=== PATIENT | female | born 1930 | race Native Hawaiian/Other Pacific Islander ===

== ENCOUNTER 2017-03-28 09:54 | Outpatient (CLI) | payer OTHER ==
[~2017-03-28 09:54] MED LIST: ALPR0.2566 PO; CARV12.5 PO; CELEBREX PO; CLOP75TA2 PO; DIGOX125 MCG PO; EVISTA60 MG PO; FURO20TA67 PO; LIPITOR10 MG PO; SPIR25TA66 PO; VALS80CA2 PO; VIT E COMPLX400 UNIT PO
[2017-03-28 11:40] LABS: PLATELET COUNT 267 K/uL (152-353)
[2017-03-28 12:20] LABS: POTASSIUM 4.3 mmol/L (3.6-5.2)
== END 2017-03-28 13:00 | disposition home or self-care (01) ==
LOC: LABW 09:54
PROVIDERS: Nurse Practitioner
DX: I25.10 Atherosclerotic heart disease of native coronary artery without angina pectoris (principal); I10 Essential (primary) hypertension; I51.89 Other ill-defined heart diseases
CPT/HCPCS: 36415; 80053; 80061; 84443; 85027

== ENCOUNTER 2017-07-21 10:53 | Emergency (ER) | payer OTHER ==
[~2017-07-21] VITALS: Ht 157.5 cm; Wt 68.0 kg
[2017-07-21 11:48] LABS: PLATELET COUNT 230 K/uL (152-353)
[2017-07-21 13:14] VITALS: BP 121/64; TEMP 97.9
== END 2017-07-21 13:15 | disposition home or self-care (01) ==
LOC: ED 10:53
DX: J11.1 Influenza due to unidentified influenza virus with other respiratory manifestations (principal); R05 Cough; R50.9 Fever, unspecified
CPT/HCPCS: 85027; 87081; 87804; 87880; 99283

== ENCOUNTER 2017-10-24 12:15 | Outpatient (CLI) | payer OTHER | END 2017-10-24 22:29 | disposition home or self-care (01) | LOC: US 12:15 | DX: M54.2 Cervicalgia (principal); M25.512 Pain in left shoulder; R42 Dizziness and giddiness; I10 Essential (primary) hypertension ==

== ENCOUNTER 2017-10-30 13:08 | Outpatient (CLI) | payer OTHER ==
[2017-10-30 13:54] LABS: PLATELET COUNT 281 K/uL (152-353)
[2017-10-30 14:19] LABS: POTASSIUM 4.6 mmol/L (3.6-5.2)
== END 2017-10-30 21:30 | disposition home or self-care (01) ==
LOC: LAB 13:08
PROVIDERS: Nurse Practitioner Family
DX: I10 Essential (primary) hypertension (principal); F41.8 Other specified anxiety disorders; I25.10 Atherosclerotic heart disease of native coronary artery without angina pectoris; Z79.899 Other long term (current) drug therapy; Z51.81 Encounter for therapeutic drug level monitoring
CPT/HCPCS: 80053; 80061; 83036; 84436; 84443; 85027

== ENCOUNTER 2017-11-05 09:32 | Outpatient (CLI) | payer OTHER | END 2017-11-05 19:57 | disposition home or self-care (01) | LOC: US 09:32 | DX: E04.1 Nontoxic single thyroid nodule (principal) ==

== ENCOUNTER 2018-07-29 11:16 | Outpatient (CLI) | payer OTHER | END 2018-07-29 20:28 | disposition home or self-care (01) | LOC: RAD 11:16 | DX: R07.89 Other chest pain (principal) ==

== ENCOUNTER 2019-08-13 10:46 | Outpatient (CLI) | payer OTHER | END 2019-08-13 19:13 | disposition home or self-care (01) | LOC: RAD 10:46 | DX: M25.562 Pain in left knee (principal); R60.0 Localized edema ==

== ENCOUNTER 2019-09-03 13:22 | Outpatient (CLI) | payer OTHER ==
[2019-09-03 14:09] LABS: PLATELET COUNT 292 K/uL (152-353)
[2019-09-03 14:34] LABS: POTASSIUM 4.9 mmol/L (3.6-5.2)
== END 2019-09-03 22:46 | disposition home or self-care (01) ==
LOC: LAB 13:22
PROVIDERS: Nurse Practitioner Family
DX: Z00.00 Encounter for general adult medical examination without abnormal findings (principal); I10 Essential (primary) hypertension; F41.8 Other specified anxiety disorders; I25.10 Atherosclerotic heart disease of native coronary artery without angina pectoris; Z79.899 Other long term (current) drug therapy; R53.83 Other fatigue; R53.81 Other malaise; E55.9 Vitamin D deficiency, unspecified
CPT/HCPCS: 80053; 80061; 82306; 83036; 84439; 84443; 84481; 85027

== ENCOUNTER 2020-06-07 13:27 | Outpatient (CLI) | payer OTHER ==
[2020-06-07 13:50] LABS: PLATELET COUNT 256 K/uL (152-353)
== END 2020-06-07 22:02 | disposition home or self-care (01) ==
LOC: LAB 13:27
PROVIDERS: ATTEND Nurse Practitioner Family
DX: I10 Essential (primary) hypertension (principal); F41.8 Other specified anxiety disorders; I25.10 Atherosclerotic heart disease of native coronary artery without angina pectoris; R53.83 Other fatigue; Z79.899 Other long term (current) drug therapy; M19.90 Unspecified osteoarthritis, unspecified site; R53.81 Other malaise; E55.9 Vitamin D deficiency, unspecified
CPT/HCPCS: 80053; 80061; 82306; 83036; 84439; 84443; 84481; 85027

== ENCOUNTER 2021-11-08 12:29 | Emergency (ER) | payer OTHER ==
[~2021-11-08] VITALS: Ht 154.9 cm; Wt 68.5 kg
[2021-11-08 12:29] VITALS: TEMP 98.2
[2021-11-08 16:29] VITALS: BP 141/60
== END 2021-11-08 16:30 | disposition home or self-care (01) ==
LOC: ED 12:29
PROC: 2W3MX1Z Immobilization of Left Lower Extremity using Splint (ICD-10-PCS; principal; 2021-11-08)
DX: S20.211A Contusion of right front wall of thorax, initial encounter (principal); S83.8X2A Sprain of other specified parts of left knee, initial encounter; W01.0XXA Fall on same level from slipping, tripping and stumbling without subsequent striking against object, initial encounter; Y92.89 Other specified places as the place of occurrence of the external cause
CPT/HCPCS: 99283; J2270; J2405